=== PATIENT | male | born 1950 | race Caucasian/White ===

== ENCOUNTER → 2022-08-21 11:59 | Outpatient (BNVA) | payer MEDICARE, SELFPAY | PROVIDERS: Visit Provider Nurse Practitioner Family | DX: E11.9 Type 2 diabetes mellitus without complications (principal); M10.9 Gout, unspecified; E78.5 Hyperlipidemia, unspecified; J06.9 Acute upper respiratory infection, unspecified; I10 Essential (primary) hypertension | CPT/HCPCS: 80053; 80061; 83036; 84550 ==

== ENCOUNTER → 2022-09-18 16:20 | Outpatient (BNVA) | payer MEDICARE, SELFPAY | PROVIDERS: PCP Nurse Practitioner Family; Visit Provider Nurse Practitioner Family | DX: L57.0 Actinic keratosis (principal); I87.2 Venous insufficiency (chronic) (peripheral); Z12.11 Encounter for screening for malignant neoplasm of colon; Z12.2 Encounter for screening for malignant neoplasm of respiratory organs; Z12.5 Encounter for screening for malignant neoplasm of prostate; I10 Essential (primary) hypertension; E11.9 Type 2 diabetes mellitus without complications; E78.5 Hyperlipidemia, unspecified | CPT/HCPCS: 80053; G0103 ==

== ENCOUNTER 2022-10-06 13:53 | Outpatient (CLI) | payer MEDICARE, SELFPAY ==
--- NOTE | 2022-10-06 14:00 | CT_ITS ---
WS: [id number] LDCT LUNG CANCER SCREENING HISTORY: screening TECHNIQUE: Axial imaging performed from the apices to 1 cm below the costophrenic angles. Coronal and sagittal reformats are submitted with axial MIP series. All CT scans at [facility] use at least one of these dose optimization techniques: automated exposure control; mA and/or kV adjustment per patient size (includes targeted exams where dose is matched to clinical indication); or iterativ e reconstruction. DLP: 70.00 mGy.cm DIvol: Mean CTDIvol: 1.50 (mGy) COMPARISON: None available. Diagnostic quality: Satisfactory Lungs: 4 mm noncalcified nodules in the RIGHT middle and RIGHT upper lobes. No additional nodule or m ass. No endobronchial lesions. Heart: Normal size heart with no pericardial effusion.. Moderate coronary artery calcifications. Other findings: Mild atherosclerosis aorta. No mediastinal or hilar adenopathy. Small hiatal hernia. No adrenal mass. CT/CT lung screening [id number] IMPRESSION: LUNG-RADS: 3-Probably Benign FOLLOW UP: 6 Month LDCT OTHER FINDINGS (S MODIFIER): None.
== END 2022-10-06 13:54 | disposition home or self-care (01) ==
PROVIDERS: PCP Nurse Practitioner Family; Visit Provider Nurse Practitioner Family
DX: Z12.2 Encounter for screening for malignant neoplasm of respiratory organs (principal)
CPT/HCPCS: 71271

== ENCOUNTER → 2022-12-09 11:07 | Outpatient (BNVA) | payer MEDICARE, SELFPAY | PROVIDERS: PCP Nurse Practitioner Family; Visit Provider Nurse Practitioner Family | DX: J06.9 Acute upper respiratory infection, unspecified (principal); J30.2 Other seasonal allergic rhinitis; Z12.11 Encounter for screening for malignant neoplasm of colon; I10 Essential (primary) hypertension; E78.5 Hyperlipidemia, unspecified; E11.9 Type 2 diabetes mellitus without complications; J45.909 Unspecified asthma, uncomplicated; M10.9 Gout, unspecified | CPT/HCPCS: 80053; 80061; 82785; 83036; 86003 ==

== ENCOUNTER → 2022-12-15 14:55 | Outpatient (BNVA) | payer MEDICARE, SELFPAY | PROVIDERS: PCP Nurse Practitioner Family; Referring Provider Nurse Practitioner Family; Visit Provider Surgery | DX: Z12.11 Encounter for screening for malignant neoplasm of colon (principal); Z12.12 Encounter for screening for malignant neoplasm of rectum | CPT/HCPCS: 99024; 99203 ==

== ENCOUNTER 2023-05-14 09:54 | Day surgery (SDC) | payer MEDICARE, SELFPAY ==
[2023-05-14] MEDS: sodium chloride 0.9% 1,000 ML 30 ML IV (10:19)
[2023-05-14 10:24] VITALS: BP 149/98; PULSE 85; RESP 18; TEMP 36.7; O2SAT 96
--- NOTE | 2023-05-14 10:24 | W.PM.OPSFHP ---
Same Day Surgery H&P Indication for Procedure/HPI DATE OF PROCEDURE: May 14, 2023 CHIEF COMPLAINT/INDICATIONFOR SURGICAL PROCEDURE: need for screening colonoscopy PREOP DIAGNOSIS: need for screening colonoscopy PLANNED PROCEDURE: Operation Date: 05/14/23 11:40 Proposed Procedures p Colonoscopy 15105,Z12.11(Not Applicable) - Galo Hicks MD Medications/Allergies* Home Medications Medication Instructions Recorded Confirmed Type allopurinol 100 mg tablet 100 mg PO DAILY 08/21/22 05/12/23 History amlodipine 5 mg tablet 5 mg PO DAILY 08/21/22 05/12/23 History cholecalciferol (vitamin D3) 25 25 mcg PO DAILY 08/21/22 05/12/23 History mcg (1,000 unit) capsule flaxseed oil 1,000 mg capsule 1,000 mg PO DAILY 08/21/22 05/12/23 History garlic 1,000 mg capsule 1,000 mg PO DAILY 08/21/22 05/12/23 History losartan 100 mg tablet 100 mg PO DAILY 08/21/22 05/12/23 History pravastatin 20 mg tablet 20 mg PO DAILY 08/21/22 05/12/23 History Allergies/Adverse Reactions Allergy/AdvReac Type Severity Reaction Status Date / Time No Known Allergies Allergy Verified 05/14/23 10:20 Current Medications: Generic Name Dose Route Start Last Admin Trade Name Freq PRN Reason Stop Dose Admin Sodium Chloride 1,000 mls @ 30 mls/hr 05/14/23 10:00 05/14/23 10:19 Sodium Chloride 0.9% IV 05/15/23 09:59 30 mls/hr .Q24H STEPHAN Administration Pertinent History/Comorbid Conditions* Family History (Updated 12/15/22 @ 15:02 by EDISON Dickerson) Hyperlipidemia Mother Cancer Brother pancreatic Hypertension Mother Father Social History Smoking and tobacco/nicotine status: former use of tobacco/nicotine Alcohol intake: former Pertinent Exam Findings alert, oriented x 3 and clear to auscultation bilaterally Recommendations Surgery/Procedure today Coding Level of Care Code Acute Code for Chg Fwd
[2023-05-14 10:25] VITALS: BMI 29.8
--- NOTE | 2023-05-14 11:06 | ANES.PREANE2 ---
Pre-Anesthetic Assessment Height/Weight: Height 1.68 m Weight 83.915 kg Temp Pulse Resp BP Pulse Ox O2 Del Method 98.1 F 85 18 149/98 96 Room Air 05/14/23 10:05/14/23 10:05/14/23 10:24 05/14/23 10:24 05/14/23 10:05/14/23 10:24 Preop Diagnosis: need for screening colonoscopy Operation Date: 05/14/23 11:40 Proposed Procedures p Colonoscopy 11946,Z12.11(Not Applicable) - Galo Hicks MD Was Beta Sanjay taken within 24 hours: N/A Was Clonidine taken within 24 hours: N/A Last intake: Intake Last Liquid Date 05/13/23 Last Liquid Time 23:45 Last Solid Date 05/12/23 Last Intake: 22:00 Social No alcohol and No tobacco Exam alert, oriented x 3, clear to auscultation bilaterally and regular rate & rhythm Airway Submandibular: within normal limits Cervical ROM: within normal limits Mallampati: Class III History/ROS No significant history except as noted and No significant complaints Pulmonary Asthma CV/HEM Hypertension high chol None reported Hepatic None reported GI None reported Metabolic Hyperlipidemia [facility] None reported Neuropsych None reported Anesthetic Plan ASA status: 3 Anesthesia: MAC Risk of > 500 ml blood loss (7ml/kg in children): Yes, adequate IV access and fluids planned Medications/Allergies Home Medications Medication Instructions Recorded Confirmed Last Taken Type allopurinol 100 mg tablet 100 mg PO DAILY 08/21/22 05/12/23 05/14/23 History amlodipine 5 mg tablet 5 mg PO DAILY 08/21/22 05/12/23 05/13/23 History cholecalciferol (vitamin D3) 25 25 mcg PO DAILY 08/21/22 05/12/23 05/13/23 History mcg (1,000 unit) capsule flaxseed oil 1,000 mg capsule 1,000 mg PO DAILY 08/21/22 05/12/23 05/13/23 History garlic 1,000 mg capsule 1,000 mg PO DAILY 08/21/22 05/12/23 05/13/23 History losartan 100 mg tablet 100 mg PO DAILY 08/21/22 05/12/23 05/13/23 History pravastatin 20 mg tablet 20 mg PO DAILY 08/21/22 05/12/2305/13/24 History albuterol sulfate 90 mcg/actuation 2 puff inhalation 6XD PRN 12/09/22 05/14/23 Unknown Rx aerosol inhaler (Ventolin HFA) shortness of breath or wheezing #8.5 grams fluticasone fur. 100 mcg-umeclid 1 inh inhalation DAILY #60 ea 12/09/22 05/12/23 05/14/23 Rx 62.5 mcg-vilant 25 mcg inhalat.powder (Trelegy Ellipta) fluticasone propionate 50 1 spray intranasal DAILY #16 grams 12/09/22 05/12/23 05/14/23 Rx mcg/actuation nasal spray,suspension (Flonase Allergy Relief) levothyroxine 125 mcg tablet See Rx Instructions .Route 04/15/23 05/12/23 05/14/23 Rx .COMPLEX #90 tabs Allergies Allergy/AdvReac Type Severity Reaction Status Date / Time No Known Allergies Allergy Verified 05/14/23 10:20 Current Medications Generic Name Dose Route Start Last Admin Trade Name Freq PRN Reason Stop Dose Admin Sodium Chloride 1,000 mls @ 30 mls/hr 05/14/23 10:00 05/14/23 10:19 Sodium Chloride 0.9% IV 05/15/23 09:59 30 mls/hr .Q24H STEPHAN Administration PFSH Anesthesia Family History (Updated 12/15/22 @ 15:02 by EDISON Dickerson) Mother Hypertension Hyperlipidemia Father Hypertension Brother Cancer pancreatic Social History (Updated 12/15/22 @ 15:02 by EDISON Dickerson) Smoking and tobacco/nicotine status: former use of tobacco/nicotine Alcohol intake: former Data Anesthesia Cardiac Studies: No Data to Display
[2023-05-14 11:32] VITALS: BP 138/75; PULSE 771; RESP 8; TEMP 36.3; O2SAT 93
[2023-05-14 11:47] VITALS: BP 141/75; PULSE 87; RESP 16; O2SAT 94
--- NOTE | 2023-05-14 13:18 | ANE.PACU2 ---
Inpatient post-anesthesia follow up: Airway intact: Yes Vital signs: Temperature 97.4 F Pulse Rate 87 Respiratory Rate 16 Blood Pressure 141/75 Pulse Oximetry 94 Oxygen Delivery Me thod Room Air Oxygen Flow Rate Fraction of Inspir ed Oxygen Hydration adequate: Yes Nausea and vomiting: No Pain level: 2 Mental status: Baseline
== END 2023-05-14 11:54 | disposition home or self-care (01) ==
PROVIDERS: PCP Nurse Practitioner Family; Visit Provider Surgery
PROC: 0DJD8ZZ Inspection of Lower Intestinal Tract, Via Natural or Artificial Opening Endoscopic (ICD-10-PCS; CPT 45378; principal; 2023-05-14 11:40)
DX: Z12.11 Encounter for screening for malignant neoplasm of colon (principal); Z87.891 Personal history of nicotine dependence; D12.8 Benign neoplasm of rectum; I10 Essential (primary) hypertension; E78.5 Hyperlipidemia, unspecified
CPT/HCPCS: 45380; 88305; J2704; J7030

== ENCOUNTER → 2023-07-21 08:43 | Outpatient (BNVA) | payer MEDICARE, SELFPAY | PROVIDERS: PCP Nurse Practitioner Family; Visit Provider Nurse Practitioner Family | DX: I10 Essential (primary) hypertension (principal); E78.5 Hyperlipidemia, unspecified; E11.9 Type 2 diabetes mellitus without complications; M10.9 Gout, unspecified; Z12.5 Encounter for screening for malignant neoplasm of prostate | CPT/HCPCS: 80053; 80061; 83036; 84443; 84550; 85025; G0103 ==

== ENCOUNTER 2023-09-23 09:46 | Outpatient (CLI) | payer MEDICARE, SELFPAY ==
--- NOTE | 2023-09-23 10:00 | CTR_ITS ---
PROCEDURE INFORMATION: Exam: CT Chest Without Contrast; Diagnostic Exam date and time: 09/23/2023 10:09 AM Age: 73 years old Clinical indication: Abnormal findings; Abnormal radiologic exam of lung or chest; Additional info: Follow up, /ct lung screening [id number] TECHNIQUE: Imaging protocol: Diagnostic computed tomography of the chest without contrast. Radiation optimization: All CT scans at this facility use at least one of these dose optimization techniques: automated exposure control; mA and/or kV adjustment per patient size (includes targeted exams where dose is matched to clinical indication); or iterative reconstruction. COMPARISON: CT lung screening [id number] 10/06/2022 2:04 PM RADIATION DOSE METRICS: Total DLP (mGy-cm): 441.38 FINDINGS: Thyroid: Grossly unremarkable. Lungs: No focal consolidation. No pneumothorax. No new, enlarging or suspicious pulmonary nodules. Pleural spaces: No pleural effusion. Heart: No cardiomegaly. No pericardial effusion. Coronary arteries: There are incidental coronary artery calcifications. Mediastinal space: Trachea and airway are grossly patent. No evidence of mediastinal hemorrhage or hematoma. Lymph nodes: No evidence of mediastinal adenopathy. Evaluation for hilar adenopathy is limited by lack of IV contrast. Vasculature: Atherosclerosis without aneurysmal dilatation of the thoracic aorta. Evaluation for acute vascular injury or thrombosis is limited by lack of IV contrast. Bones/joints: No evidence of acute fracture or aggressive osseous lesion. Soft tissues: No evidence of fluid collection or hematoma in the superficial soft tissues. Other findings: No evidence of acute abnormality in the upper abdomen. Severe hepatic steatosis. CT/CT chest wo con [id number] IMPRESSION: 1. No new, enlarging or suspicious pulmonary nodules.
== END 2023-09-23 09:47 | disposition home or self-care (01) ==
PROVIDERS: PCP Nurse Practitioner Family; Visit Provider Nurse Practitioner Family
DX: R91.8 Other nonspecific abnormal finding of lung field (principal); I70.0 Atherosclerosis of aorta
CPT/HCPCS: 71250